=== PATIENT | male | born 1980 | race Caucasian/White ===

== ENCOUNTER 2018-08-31 20:22 | Emergency (ER) | payer SELFPAY ==
[2018-08-31 20:30] VITALS: BMI 30.7
--- NOTE | 2018-08-31 20:30 | PDOC ---
Rapid Medical Evaluation Time Seen by Provider: 08/31/18 20:26 Medical Evaluation: Allergies Allergy/AdvReac Type Severity Reaction Status Date / Time No Known Allergies Allergy Verified 08/25/12 14:37 08/31/18 20:26 I have performed a brief in-person evaluation of this patient. The patient presents with a chief complaint of:L forearm lac tonight at home while using ?circular saw, tetanus within 5 years Pertinent physical exam findings:extensive complicated lac to proximal L forearm I have ordered the following:nothing The patient will proceed to the ED for further evaluation. 08/31/18 20:30 Discharge Disposition - Diagnosis Forearm laceration Qualifiers: Encounter type: initial encounter Laterality: left Qualified Code(s): S51.812A - Laceration without foreign body of left forearm, initial encounter - Referrals - Patient Instructions - Post Discharge Activity
--- NOTE | 2018-08-31 20:56 | PDOC ---
History of Present Illness - General Chief Complaint: Injury Stated Complaint: LEFT ARM INJURY Time Seen by Provider: 08/31/18 20:26 - History of Present Illness Initial Comments: Franko Isabel is a 38yo man with no relevant medical history who presents with an injury to the left forearm that occurred less than 1 hour ago at work. He reports that he was working with a roter, and the tool slipped and scraped across his anterior forearm (flexor surface). A co-worker cut the sleeves off his shirt immediately and applied a tight bandage. They presented immediately to the hospital. Mr Isabel states that he has been able to move his hand, and he feels his sensation is intact though he notes some tingling to the thumb, index, and middle fingers of his left hand. He has no loss of strength. He believes that the bleeding has now stopped. Mr Isabel reports that he had a recent tetanus as it was updated with a previous injury. Past History - Past Medical History Allergies/Adverse Reactions: Allergies Allergy/AdvReac Type Severity Reaction Status Date / Time No Known Allergies Allergy Verified 08/31/18 20:28 Home Medications: Ambulatory Orders No Home Medications 0 dose .ROUTE UTDICT 08/25/12 Oxycodone HCl/Acetaminophen [Percocet 5-325 mg Tablet] 1 - 2 tab PO Q6H #20 tablet 08/25/12 Cephalexin [Keflex] 500 mg PO QID #28 capsule 09/01/18 COPD: No - Surgical History Appendectomy: Yes - Suicide/Smoking/Psychosocial Hx Smoking Status: No Smoking History: Never smoked Number of Cigarettes Smoked Daily: 0 Information on smoking cessation initiated: No Review of Systems - Review of Systems Comments:: General: No fevers, no chills, no weight or appetite change, no malaise HEENT: No changes in vision, no changes in hearing, no congestion, no sore throat CV: No chest pain, no palpitations, no LE edema Pulm: No SOB, no cough, no wheezing GI: No nausea or vomiting, no change in bowel habits, no melena : No frequency, no urgency, no dysuria Musc: No back pain, no joint swelling. See HPI. Skin: No rash, no lesions, no erythema Endo: No excessive thirst, no heat/cold intolerance Heme: No unusual bruising or bleeding, no swollen glands Neuro: No syncope, no numbness/tingling, no focal weakness Vasc: No claudication Psych: No recent change in mood, no SI or HI *Physical Exam - Vital Signs Last Vital Signs Temp Pulse Resp BP Pulse Ox 98.6 F 114 H 18 157/89 97 08/31/18 20:28 08/31/18 20:28 08/31/18 20:28 08/31/18 20:28 08/31/18 20:28 - Physical Exam Comments: General: Comfortable, no acute distress HEENT: PERRL, EOMI, MMM, voice normal Cards: RRR Pulm: Comfortable on room air Ext: LUE with 2 x 10cm wound to the flexor surface, starts about 3-4cm from mid- forearm and extends diagonally to the medial forearm, ending aobout 8cm from the elbow on the medial side. Wound with avulsed skin throughout. Minimal active bleeding, though covered in blood-soaked cloth. Some removed skin pushed to the proximal side of the wound. Motor function in 3 nerve distributions intact. Sensation to light touch intact over entire hand and equal to R hand. Vasc: Extremities WWP. Palpable radial pulses b/l Neuro: A&Ox3, CN grossly intact, normal speech, motor/sensory grossly intact and symmetric Psych: Mood appropriate to situation Moderate Sedation - Procedure Monitoring Vital Signs: Procedure Monitoring Vital Signs Temperature 98.6 F 08/31/18 20:28 Pulse Rate 114 H 08/31/18 20:28 Respiratory Rate 18 08/31/18 20:28 Blood Pressure 157/89 08/31/18 20:28 O2 Sat by Pulse Oximetry (%) 97 08/31/18 20:28 Procedures - Laceration/Wound Repair Left Anterior Arm Wound Length: 7.6 to 12.5 cm Wound Explored: clean Wound's Depth, Shape: into muscle, irregular Irrigated w/ Saline: Yes Betadine Prep: Yes Anesthesia: 1% Lidocaine Amount of Anesthetic (ccs): 25 Wound Debrided: minimal Wound Repaired With: Sutures Suture Size/Type: 6:0, 4:0 Number of Sutures: 45 (37 simple interrupted sutures with 6-0 proline. 6 simple interrupted with 4-0 proline. 2 horizontal mattress with 4-0 proline) Sterile Dressing Applied: Yes Splint Applied: No Sling Applied: Yes Medical Decision Making - Medical Decision Making 08/31/18 20:57 Franko Isabel is a 38yo man who presents with a deep abrasion/laceration injury to the flexor surface of the left forearm. The wound measures approximately 10cm x 2cm and involves loss of skin throughout the wound. - Neurovascularly intact - Has had tetanus updated within the past 5 years - Relatively superficial wound; no concern for foreign body in the wound - Percocet ordered for pain - Will anesthetize and clean the wound. May not be able to repair the injury due to missing tissue. 09/01/18 00:24 - Wound repaired at bedside. 45 sutures placed. 38 simple interrupted with 6-0 proline, 6 simple interrupted wiht 4-0 proline, 2 horizontal mattress with 4-0 proline. Small piece of non-viable tissue removed with sharp debridement. - Wound dressed with bacitracin, xeroform, telfa pad, kerlix wrap - Sling in place - Discussed home care and return precautions with Mr Isabel. He agrees and understands. He agrees to present back to the ED on Monday for a wound check. - Discharge home. Seen and discussed with Dr Lemos. Latrice Leon PGY1 *DC/Admit/Observation/Transfer Diagnosis at time of Disposition: Forearm laceration Qualifiers: Encounter type: initial encounter Laterality: left Qualified Code(s): S51.812A - Laceration without foreign body of left forearm, initial encounter - Discharge Dispostion Disposition: HOME Condition at time of disposition: Stable Decision to Admit order: No - Referrals - Patient Instructions Printed Discharge Instructions: DI for Laceration Repair -- Complex Suture Additional Instructions: Discharge Instructions: - You were seen in the emergency department with a left forearm wound - Your wound was repaired with stitches. You had 45 stitches placed. Home Care: - Do not remove the dressing from your wound for the next 48 hours. Once you are able to change the dressing, you should change it every time it is wet or dirty or at least once per day. You will apply bacitracin ointment (available at the pharmacy) and place a clean, dry, gauze dressing over the wound. You will be shown how to do this when you come for your wound check. - Do not get your wound wet for 48 hours. After 48 hours, you will likely be able to shower, but avoid soaking the wound. - Keep your arm in the sling when possible to remind yourself and others that your arm is injured - You may take acetaminophen (Tylenol) for pain control at home. You may take 1000mg (two extra-strength tablets) every 6 hours as needed for pain. You may also take ibuprofen (Motrin, Advil) 600-800mg every 6 hours. These can be alternated every 3-4 hours if your pain is severe. - Some drainage from the wound is expected. If you notice a small amount of bleeding, drainage that is pink (like fruit punch) or clear yellow, this is not anything to be worried about. If you notice the wound has thick, white to yellow discharge with a bad odor, please come back to the ED immediately Follow Up: - You will need to come back in 2 days on Monday to have someone check your wound. Your dressing will be changed, and you will be shown how to care for the wound at home - Come back to the ED immediately if you have fevers over 100F, shivering chills , worsening pain, worsening swelling, bad smelling drainage from the wound, redness spreading up your arm, or you are concerned about your wound. - Post Discharge Activity
--- NOTE | 2018-08-31 21:15 | PDOC ---
Attending Attestation - HPI HPI: 08/31/18 22:43 The patient is a 38 year old female with no significant PMH who presents to the emergency department with a left arm injury since earlier today. The patient reports that he was at work earlier today when his right arm got caught in a rotator. The patient reports that his tetanus is up to date. He denies any other symptoms or complaints. He denies any fever, chills, nausea, vomiting, diarrhea, constipation or urinary symptoms. She denies any chest pain, shortness of breath, headache or dizziness. The patient denies any numbness, weakness or tingling sensation. - Physicial Exam PE: 08/31/18 22:43 GENERAL: Awake, alert, and fully oriented, in no acute distress HEAD: No signs of trauma EYES: PERRLA, EOMI, sclera anicteric, conjunctiva clear ENT: Auricles normal inspection, hearing grossly normal, nares patent, oropharynx clear without exudates. Moist mucosa NECK: Normal ROM, supple, no lymphadenopathy, JVD, or masses LUNGS: Breath sounds equal, clear to auscultation bilaterally. No wheezes, and no crackles HEART: Regular rate and rhythm, normal S1 and S2, no murmurs, rubs or gallops ABDOMEN: Soft, nontender, normoactive bowel sounds. No guarding, no rebound. No masses EXTREMITIES: (+)large avulsion of skin off of forearm, mildly oozing (no acute bleeding). Missing dermis/epidermis. Sensation and muscle strength intact Normal range of motion, no edema. No clubbing or cyanosis. No cords, erythema, or tenderness NEUROLOGICAL: Cranial nerves II through XII grossly intact. Normal speech, normal gait SKIN: Warm, Dry, normal turgor, no rashes or lesions noted. Documentation prepared by Darian Montalvo, acting as medical engineer for Mraina Lemos MD. <Darian Montalvo - Last Filed: 08/31/18 22:43> - Resident Resident Name: Latrice Leon - ED Attending Attestation I have performed the following: I have examined & evaluated the patient, The case was reviewed & discussed with the resident, I agree w/resident's findings & plan, Exceptions are as noted - Medical Decision Making 08/31/18 21:14 I, Dr. Marina Lemos, DO, attest that this document has been prepared under my direction and personally reviewed by me in its entirety. I further attest, that it accurately reflects all work, treatment, procedures and medical decision -making performed by me. 08/31/18 22:04 a/p: 38yo male with LUE skin avulsion -tetanus UTD -skin avulsion -will need some sutures -will give abx -local wound care -neurovasc intact distal to wound 09/01/18 00:40 laceration repaired with sutures keflex given tetanus is UTD local wound care wound check in 2 days discussed all reasons to return to the ED immediately for worsening pain, swelling, redness, drainage stable for d/c to home <Marina Lemos - Last Filed: 09/01/18 00:40>
[2018-08-31] MEDS ORDERED: CEPHALEXIN MONOHYDRATE 500 MG CAPSULE (UD) PO ONE (21:54)
[2018-08-31] MEDS ORDERED: CEPHALEXIN MONOHYDRATE 500 MG CAPSULE (UD) ONE (22:12)
[2018-08-31] MEDS ORDERED: LIDOCAINE HCL 1%, 10 MG/ML (50 mL VIAL) SQ ONE (22:19)
[2018-08-31] MEDS ORDERED: LIDOCAINE HCL 1%, 10 MG/ML (20ML VIAL) ONE (22:20)
[2018-09-01 00:45] VITALS: BP 136/78; PULSE 89; TEMP 98.5
== END 2018-09-01 00:45 | disposition home or self-care (01) ==
LOC: JER 20:22
PROC: 0JQH3ZZ Repair Left Lower Arm Subcutaneous Tissue and Fascia, Percutaneous Approach (ICD-10-PCS; principal; 2018-08-31)
DX: S51.812A Laceration without foreign body of left forearm, initial encounter (principal); W29.8XXA Contact with other powered hand tools and household machinery, initial encounter; Y93.89 Activity, other specified; Y92.69 Other specified industrial and construction area as the place of occurrence of the external cause; Y99.0 Civilian activity done for income or pay
CPT/HCPCS: 99281-25

== ENCOUNTER 2018-09-02 14:59 | Emergency (ER) | payer SELFPAY ==
[2018-09-02 15:06] VITALS: BP 127/83; PULSE 91; TEMP 98.3
--- NOTE | 2018-09-02 15:37 | PDOC ---
Suture Removal/Wound Check HPI - History of Present Illness Chief Complaint: Revisit,Wound Recheck Stated Complaint: SUTURE FOLLOW UP Time Seen by Provider: 09/02/18 15:29 History Source: Yes: Patient Exam Limitations: Yes: No Limitations Treated at: [facility] ED - Previous ED Treatment Type of procedure performed on last visit: Yes: Laceration Repair (left inner arm) Past History - Past Medical History Allergies/Adverse Reactions: Allergies Allergy/AdvReac Type Severity Reaction Status Date / Time No Known Allergies Allergy Verified 09/02/18 15:05 Home Medications: Ambulatory Orders No Home Medications 0 dose .ROUTE UTDICT 08/25/12 COPD: No - Surgical History Appendectomy: Yes - Suicide/Smoking/Psychosocial Hx Smoking Status: No Smoking History: Never smoked Number of Cigarettes Smoked Daily: 0 *Review of Systems - Review of Systems Able to Perform ROS?: Yes Integumentary: Yes: Symptoms Reported *Physical Exam - Vital Signs Last Vital Signs Temp Pulse Resp BP Pulse Ox 98.3 F 91 H 18 127/83 99 09/02/18 15:03 09/02/18 15:03 09/02/18 15:03 09/02/18 15:03 09/02/18 15:03 - Physical Exam Integumentary: positive: Other (left iiner forearm with jagged laceration sutures intact no redness no drainage xeroform and gauze placed ) Neurologic: positive: Fully Oriented, Alert, Normal Mood/Affect, Normal Response , Motor Strength 5/5 Moderate Sedation - Procedure Monitoring Vital Signs: Procedure Monitoring Vital Signs Temperature 98.3 F 09/02/18 15:03 Pulse Rate 91 H 09/02/18 15:03 Respiratory Rate 18 09/02/18 15:03 Blood Pressure 127/83 09/02/18 15:03 O2 Sat by Pulse Oximetry (%) 99 09/02/18 15:03 Medical Decision Making - Medical Decision Making 09/06/18 15:59 cc: wound check left inner forearm , sutures placed 2 days ago in this ERno redness no swelling no drainage, mild pain , no bleeding dressing changed wound appears intact follow up as discussed *DC/Admit/Observation/Transfer Diagnosis at time of Disposition: Visit for wound check - Discharge Dispostion Disposition: HOME Condition at time of disposition: Good - Referrals - Patient Instructions Printed Discharge Instructions: How to Care for a Surgical Wound Additional Instructions: keep clean and dry do not remove the bandage for 3 days then gently remove and apply topical bandaids keep covered daily and return in 10-12 days for suture removal - Post Discharge Activity Forms/Work/School Notes: Back to Work
== END 2018-09-02 15:40 | disposition home or self-care (01) ==
LOC: JERFT 14:59 → JER 14:59 → JERFT 15:40
DX: Z48.01 Encounter for change or removal of surgical wound dressing (principal)
CPT/HCPCS: 99281-25